=== PATIENT | male | born 1990 | race Caucasian/White ===

== ENCOUNTER → 2018-04-16 | Outpatient (CLI) | payer OTHER ==
[2018-04-16 10:30] LABS: Basophils % (A) 1 %; Eosinophils # (A) 0.2 k/uL (0-0.7); Eosinophils % (A) 2 %; HCT 43.7 % (39.0-53.0); HGB 14.9 gm/dL (13.0-17.5); Lymphocytes # (A) 2.9 k/uL (1.0-4.8); Lymphocytes % (A) 34 %; MCH 27.4 pg (25.0-35.0); MCHC 34.2 g/dL (31.0-37.0); Mean Platelet Volume 7.9; Monocytes # (A) 0.5 k/uL (0-1.0); Monocytes % (A) 5 %; Neutrophils # (A) 4.9 k/uL (1.3-7.7); Neutrophils % (A) 57 %; Platelet Count 268 k/uL (150-450); RBC 5.46 m/uL (4.30-5.90); RDW 13.7 % (11.5-15.5); WBC 8.6 k/uL (3.8-10.6)
[2018-04-16 10:43] LABS: ALT 39 U/L (21-72); AST 25 U/L (17-59); Alkaline Phosphatase 84 U/L (38-126); Anion Gap 7 mmol/L; Blood Urea Nitrogen 11 mg/dL (9-20); Calcium 9.4 mg/dL (8.4-10.2); Carbon Dioxide 30 mmol/L (22-30); Chloride 105 mmol/L (98-107); Cholesterol 179 mg/dL (<200); Glucose 99 mg/dL (74-99); HDL Cholesterol 31 mg/dL (40-60); LDL Cholesterol,Calculated 103 mg/dL (0-99); Potassium 4.4 mmol/L (3.5-5.1); Sodium 142 mmol/L (137-145); Total Bilirubin 0.3 mg/dL (0.2-1.3); Total Protein 6.7 g/dL (6.3-8.2); Triglycerides 226 mg/dL (<150)
[2018-04-16 10:58] LABS: T4, Free (Free Thyroxine) 0.91 ng/dL (0.78-2.19)
== END | disposition home or self-care (01) ==
LOC: LABWHC1 10:05
PROVIDERS: ATTEND Internal Medicine
DX: Z00.00 Encounter for general adult medical examination without abnormal findings (principal); I45.9 Conduction disorder, unspecified
CPT/HCPCS: 36415; 80053; 80061; 82306; 84439; 84443; 84481; 85025

== ENCOUNTER → 2020-04-01 | Outpatient (CLI) | payer OTHER | END | disposition home or self-care (01) | LOC: LABWHC1 14:53 | PROVIDERS: ATTEND Internal Medicine | DX: R05 Cough (principal); R06.02 Shortness of breath | CPT/HCPCS: U0003; C9803 ==

== ENCOUNTER → 2020-08-08 | Outpatient (CLI) | payer OTHER | END | disposition home or self-care (01) | LOC: LABWHC1 13:00 | PROVIDERS: ATTEND Nurse Practitioner Adult Health | DX: Z20.828 Contact with and (suspected) exposure to other viral communicable diseases (principal) ==

== ENCOUNTER 2020-11-01 09:49 | Day surgery (SDC) | payer OTHER ==
[2020-10-30 14:04] VITALS: BMI 55.2
[~2020-11-01 09:49] MED LIST: LACTATED RINGERS 1,000 ML IV SCH
[2020-11-01] MEDS ORDERED: LIDOCAINE 1% (10MG/ML) FOR IV START INTRADERMA ONE (10:45)
[2020-11-01 10:46] VITALS: RESP 16; TEMP 98.3
[2020-11-01] MEDS ORDERED: PROPOFOL 10 MG/ML 20 ML VIAL IV ONE (10:55)
[2020-11-01] MEDS ORDERED: LIDOCAINE 1% INJ 10MG/ML (20 ML MDV) ONE (10:55)
--- NOTE | 2020-11-01 11:07 | P.PCN ---
Date of Procedure: 11/01/20 Procedure(s) Performed: BRIEF HISTORY: Patient is a 30-year-old pleasant male scheduled for an elective colonoscopy as a part of evaluation of intermittent rectal bleeding and occasional diarrhea on and off for the last several months duration. PROCEDURE PERFORMED: Colonoscopy. PREOPERATIVE DIAGNOSIS: Rectal bleeding and intermittent diarrhea of several months duration. IV sedation per Anesthesia. PROCEDURE: After informed consent was obtained, the patient, was brought into the endoscopy unit. IV sedation was administered by Anesthesia under continuous monitoring. Digital rectal examination was normal. Initially the Olympus CF-160 flexible video colonoscope was then inserted in the rectum, gradually advanced into the cecum without any difficulty. Careful examination was performed as the scope was gradually being withdrawn. Ileocecal valve and the appendiceal orifice were visualized and appeared normal. Prep was excellent. Mucosa of the cecum, ascending colon, transverse colon, descending colon, sigmoid colon, and rectum appeared normal. Retroflexion was performed in the rectum and no internal hemorrhoids were seen. The patient tolerated the procedure well. IMPRESSION: Normal-appearing colon from rectum to cecum no evidence of colitis or colorectal neoplasia . Small internal hemorrhoids. RECOMMENDATIONS: Findings of this examination were discussed with the patient as well as his family. He was advised to be a high-fiber diet and take fiber supplements a regular basis and avoid straining and constipation..
[2020-11-01] MEDS ORDERED: IV FLUID CONTINUATION 1,000 ML IV ONE (11:09)
[2020-11-01 11:25] VITALS: BP 124/70; PULSE 79
== END 2020-11-01 11:42 | disposition home or self-care (01) ==
LOC: ORWHC2ENDO 09:49
PROVIDERS: ATTEND Internal Medicine Gastroenterology
DX: K64.8 Other hemorrhoids (principal); E66.01 Morbid (severe) obesity due to excess calories; Z68.43 Body mass index [BMI] 50.0-59.9, adult; Z88.8 Allergy status to other drugs, medicaments and biological substances; Z79.899 Other long term (current) drug therapy; Z88.6 Allergy status to analgesic agent; Z88.0 Allergy status to penicillin; Z88.2 Allergy status to sulfonamides
CPT/HCPCS: 45378; J2001; J2704